=== PATIENT | male | born 1995 | race Caucasian/White ===

== ENCOUNTER 2018-12-13 19:09 | Inpatient (IN) | payer BC ==
[~2018-12-13 19:09] MED LIST: Iopamidol 300 61% 100 ML VIAL FS ONE
[2018-12-13 20:23] LABS: ALT (SGPT) 60 U/L (8-55); AST (SGOT) 31 U/L (5-34); Albumin 4.3 g/dL (3.5-5.0); Alkaline Phosphatase 79 U/L (40-150); Anion Gap 14 mmol/L (10-20); BUN (Urea Nitrogen) 15 mg/dL (8.9-20.6); Bilirubin, Total 0.2 mg/dL (0.2-1.2); Calc. Creatinine Clearance 0 mL/min (70-130); Calcium 9.8 mg/dL (7.8-10.44); Carbon Dioxide 26 mmol/L (22-29); Cardiac Risk 5.2 (Less than 4.5); Chloride 104 mmol/L (98-107); Cholesterol 183 mg/dl (< 200 Desired); Estimated GFR-MDRD Greater than 90; Glucose 134 mg/dL (70-105); HDL Cholesterol 35 mg/dL (>60 Neg Risk); LDL Cholesterol, Calculated 111 mg/dL; Lipase 206 U/L (8-78); Potassium 3.7 mmol/L (3.5-5.1); Protein, Total 7.3 g/dL (6.0-8.3); Sodium 140 mmol/L (136-145); Triglycerides 185 mg/dL (Less than 150)
--- NOTE | 2018-12-13 20:58 | ULT ---
Right upper quadrant ultrasound: 12/13/2018 COMPARISON: None HISTORY: Diffuse abdominal pain, elevated lipase TECHNIQUE: Multiplanar grayscale sonographic imaging of the right upper quadrant obtained. FINDINGS: The pancreas is difficult to visualize secondary to bowel gas. Mildly prominent partially v isualized pancreatic duct noted. No focal liver lesion or intrahepatic biliary dilatation. The right kidney measures 11.1 cm in craniocaudal dimension and demonstrates no stone, hydronephrosis , or mass. No gallbladder wall thickening. No pericholecystic fluid or gallstones. The manager of selection and assessment reports a neg ative Rodney's sign. The common bile duct measures 2 mm, within normal limits. IMPRESSION: No evidence for cholelithiasis or cholecystitis.
[2018-12-13] MEDS ORDERED: Ondansetron PF 4 MG/2 ML Vial ONE (21:14)
[2018-12-13] MEDS ORDERED: Morphine 4 MG/ML VIAL ONE (21:14)
--- NOTE | 2018-12-13 22:03 | CT ---
CT abdomen and pelvis: 12/13/2018 COMPARISON: None HISTORY: Abdominal pain TECHNIQUE: Axial CT imaging at 5 mm intervals from lung bases through pubic symphysis with IV contras t. Coronal reformatted imaging obtained. FINDINGS: The visualized lung bases are unremarkable. No free intraperitoneal air. The liver, gallbladder, and spleen appear unremarkable. The distal pancreatic body and the pancreatic tail is ill-defined and slightly enlarged. There is inf lammatory fat stranding adjacent to the distal pancreas. The adrenal glands and the kidneys appear unremarkable. The appendix is unremarkable. There is significant abnormal free fluid within the pelvis. There is a focal area of prominent colonic wall thickening and pericolonic fat stranding in the regio n of the splenic flexure. No evidence for bowel obstruction is noted. Vascular structures of the abdomen/pelvis appear patent. No retroperitoneal lymphadenopathy is noted. Osseous structures demonstrate no worrisome lytic or blastic bone lesions. IMPRESSION: Prominent inflammatory fat stranding in the left upper quadrant adjacent to the distal pa ncreatic body/pancreatic tail and the splenic flexure. This could represent colitis with secondary inflammation of the pancreas or could represent pancreatitis with secondary inflammation of the colon . Clinical correlation is essential.
[2018-12-13] MEDS ORDERED: metroNIDAZOLE 500 MG/100 ML BAG ONE (22:19)
[2018-12-13] MEDS ORDERED: Ciprofloxacin Lactate/D5W 400 mg/200 ml Premix ONE (22:19)
[2018-12-14 00:21] VITALS: BMI 25.7
[2018-12-14] MEDS ORDERED: Ondansetron PF 4 MG/2 ML Vial IVP PRN (00:37)
[2018-12-14] MEDS ORDERED: Ondansetron ODT 4 MG TAB PO PRN (00:37)
[2018-12-14] MEDS ORDERED: Acetaminophen 325 MG TAB PO PRN (00:37)
[2018-12-14] MEDS ORDERED: Morphine 4 MG/ML VIAL SLOW IVP PRN (00:41)
[2018-12-14] MEDS: Sodium Chloride 0.9% 1,000 ML IV SCH ×3 (01:41→13:54)
--- NOTE | 2018-12-14 03:23 | HP ---
PRIMARY CARE PHYSICIAN: Rubio Aparicio MD. TIME OF EVALUATION: 11:30. CHIEF COMPLAINT: Abdominal pain. HISTORY OF PRESENT ILLNESS: This is a 23-year-old male patient, with past medical history of no significant medical problems, came to the hospital after having abdominal pain for the last 2 weeks. There is diffuse epigastric with radiation to the lower abdomen and back. The patient has no clear triggers, no alleviating factors. He did report having some hypertension, some Motrin for pain. Symptoms were moderate. REVIEW OF SYSTEMS: CONSTITUTIONAL: No fever, chills, or generalized weakness. RESPIRATORY: No cough, sputum production, shortness of breath. CARDIOVASCULAR: No chest pain or palpitation. GASTROINTESTINAL: No nausea. No vomiting. No diarrhea. The patient has abdominal pain. SYSTEMS CONSULTANT: No dizziness, headache, or feeling lightheaded. GENITOURINARY: No burning on urination. EXTREMITIES: No leg swelling. All other systems were reviewed and negative except for the findings mentioned above. PAST MEDICAL HISTORY: Negative. PAST SURGICAL HISTORY: No surgical history. PSYCHIATRIC HISTORY: Negative. SOCIAL HISTORY: The patient drinks every week. No drugs. The patient uses tobacco, smokes cigarettes on a daily basis. FAMILY HISTORY: Positive for mother with diabetes and father with heart problems. KNOWN ALLERGIES: No known drug allergies. REPORTED MEDICATIONS: None. PHYSICAL EXAMINATION: VITAL SIGNS: On presentation, blood pressure 127/94 with heart rate 83, respiratory rate was 18, temperature 98.6. Pain was 3/10. Oxygen saturation was 98% on room air. GENERAL APPEARANCE: The patient is alert, oriented, not in acute distress. HEENT: Eyes, normal conjunctivae. Moist oral mucosa. Anicteric. No JVD. RESPIRATORY: Bilateral air entry. No rales. No wheezes. Symmetric expansion. CARDIOVASCULAR: Normal rate, regular rhythm. No murmurs. No gallop. No edema. ABDOMEN: Soft. The patient has mild abdominal tenderness. MUSCULOSKELETAL: Baseline range of motion and strength. No tenderness. SKIN: Warm, intact. No pallor. No rash. No redness. Peripheral pulses are present. Capillary refill seems to be intact. NEUROLOGICAL: No evidence of any new focal weakness. Baseline speech. Cranial nerves seems to be intact. PSYCHIATRIC: The patient is in good mood. No anxiety. Optimal judgment. IMAGING STUDIES: CT abdomen was done and shows some possible inflammation of the pancreas/colon. The patient has no symptoms of colitis. LABORATORY DATA: Reviewed. The patient has sodium of 140, potassium 3.7, chloride 104, carbon dioxide 26, anion gap 14, BUN 15, creatinine 0.79, glucose 134, calcium 9.8, total bilirubin 0.2, AST 31, ALT 6, alkaline phosphatase 79. Serum total protein 7.3, albumin 4.3, globulin 3.0, albumin globulin ratio is 1.4. Triglycerides 185, cholesterol 183, LDL 111, HDL cholesterol 35. 2.5, lipase 206. ASSESSMENT AND PLAN: The patient will be placed in the hospital with following medical problems; 1. Possible pancreatitis. The patient has continuous abdominal pain for the past 2 weeks and had lipase in the range of 200. Also some CT findings suspicious for acute pancreatitis. The patient will receive IV fluids. We will treat with pain management, monitor. 2. Deep venous thrombosis prophylaxis. The patient should ambulate. Job ID: [id number]
[2018-12-14 07:59] LABS: #Eosinphils 0.2 thou/uL (0.0-0.7); #Monocytes 0.4 thou/uL (0.11-0.59); #Neutrophils 3.1 thou/uL (1.40-6.50); %Basophils 0.1 % (0.0-1.0); %Eosinophils 2.8 % (0.0-10.0); %Monocytes 7.7 % (0.0-10.0); %Neutrophils 54.4 % (42.0-75.0); Hemoglobin 13.2 g/dL (14.0-18.0); Mean Corpuscular HGB CONC 34.1 g/dL (32.0-36.0); Mean Corpuscular Hemoglobin 29.3 pg (27.0-31.0); Mean Corpuscular Volume 85.8 fL (78.0-98.0); Mean Platelet Volume 7.5 fL (7.4-10.4); Platelet Count 269 thou/uL (130-400); RBC Distribution Width 11.6 % (11.5-14.5); Red Blood Cell (RBC) Count 4.51 mill/uL (4.70-6.10); White Blood Cell (WBC) Count 5.6 thou/uL (4.8-10.8)
[2018-12-14 08:19] LABS: Anion Gap 10 mmol/L (10-20); BUN (Urea Nitrogen) 11 mg/dL (8.9-20.6); Calc. Creatinine Clearance 184 mL/min (70-130); Calcium 8.7 mg/dL (7.8-10.44); Carbon Dioxide 25 mmol/L (22-29); Chloride 107 mmol/L (98-107); Estimated GFR-MDRD Greater than 90; Glucose 98 mg/dL (70-105); Potassium 3.9 mmol/L (3.5-5.1); Sodium 138 mmol/L (136-145)
[2018-12-14] MEDS ORDERED: Enoxaparin Sodium 40 MG/0.4 ML SYRINGE SC SCH (09:00)
[2018-12-14 09:30] LABS: Lipase 197 U/L (8-78); Magnesium 1.7 mg/dL (1.6-2.6); Phosphorus 3.5 mg/dL (2.3-4.7)
[2018-12-14] MEDS: Famotidine/PF 20 mg/2ml Vial SLOW IVP SCH ×2 (10:15→20:21)
[2018-12-14] MEDS: Famotidine 20 MG TAB PO SCH ×2 (10:15→20:21)
[2018-12-14] MEDS: Dextrose 5 %-0.45 % NaCl 1,000 ML IV SCH (16:32)
--- NOTE | 2018-12-14 23:14 | CON ---
DATE OF CONSULTATION: 12/14/2018 INDICATION FOR CONSULTATION: Acute pancreatitis. CONSULTING PHYSICIAN: Roberto Carmona MD. HISTORY OF PRESENT ILLNESS: The patient is a 23-year-old male with no significant past medical history, presenting with complaints of midepigastric abdominal pain. He states that he was in his usual state of health until approximately 2 weeks ago when he had acute onset of midepigastric abdominal pain. This abdominal pain was characterized as a sharp/stabbing type sensation, was constant with waxing/waning severity, would radiate to his mid back in the periumbilical region and would reach a severity of approximately 7 to 8/10. The pain was worse with eating solids only and was able to tolerate liquid liquids with no difficulty, worse with not eating and with deep inspiration, The pain was better with decreased physical activity, again not eating and administration of pain medications here in the hospital. Associated symptoms included nausea without vomiting, abdominal bloating, and the sensation to have a bowel movement, but unable to do so. Upon evaluation in the [facility] ER, he had imaging that was consistent with inflammatory fat stranding adjacent to the pancreatic body and tail consistent with acute pancreatitis as well as an elevated lipase that was near the diagnostic criteria for that and ultimately admitted to the hospital for treatment for acute pancreatitis. Currently, he denies any vomiting, fevers, chills, dysphagia, odynophagia, GI bleeding, or weight loss. Of note, the patient would smoke approximately one half pack per day along with drinking anywhere between 6 beers to 1 to one half bottle of liquor on the weekends. PAST MEDICAL HISTORY: None. PAST SURGICAL HISTORY: None. FAMILY HISTORY: Denies any GI malignancies. SOCIAL HISTORY: Denies any illicit drug use, but does smoke tobacco at approximately 1/4 pack per day. He also drinks every week on the weekends where he would consume anywhere between 1 six-pack of beer to one half to 1 bottle of liquor. OUTPATIENT MEDICATIONS: None. ALLERGIES: NO KNOWN DRUG ALLERGIES. PHYSICAL EXAMINATION: VITAL SIGNS: Temperature 97.8, pulse 55, blood pressure 129/80, respiratory rate 15, saturating 98% on room air. GENERAL: The patient was lying in bed, in no acute distress. Alert and oriented x4. HEENT: Normocephalic, atraumatic. NECK: Supple with no JVD or scleral icterus noted. CARDIOVASCULAR: Regular rate and rhythm with no discernible murmurs, gallops, or rubs. RESPIRATORY: Clear to auscultation bilaterally with no discernible wheezes or rales. ABDOMEN: Normoactive bowel sounds. Soft, nondistended. Tenderness to palpation in the midepigastric, left upper quadrant and right upper quadrant. EXTREMITIES: No cyanosis, clubbing, or edema. LABORATORY DATA: CBC with a white blood cell count of 5.6, hemoglobin 13.2, hematocrit 38.7, platelets 269. Chemistry with a sodium of 138, potassium 3.9, chloride 107, CO2 of 25, BUN 11, creatinine 0.74, glucose 98. AST 31, ALT 60, alkaline phosphatase 79, total bilirubin 0.2, lipase 206, triglycerides 185. IMAGING DATA: Right upper quadrant ultrasound obtained on December 13, 2018 showed a mildly prominent pancreatic duct with no focal liver lesion or intrahepatic dilatation seen. There was also no gallbladder wall thickening or cholelithiasis with the common bile duct measuring approximately 2 [address] in diameter. A CT of the abdomen/pelvis was obtained on December 13, 2018, which showed ill-defined character of the distal pancreatic body and tail that was noted to be slightly enlarged with inflammatory fat stranding adjacent to the distal pancreas. Prominent colonic wall thickening was also noted in this region with pericolonic fat stranding around the splenic flexure. ASSESSMENT AND PLAN: The patient is a 23-year-old male with no significant past medical history, presenting with acute uncomplicated pancreatitis. Acute uncomplicated pancreatitis. The patient is presenting with acute onset of midepigastric abdominal pain approximately 2 weeks ago, characterized as a sharp/stabbing type sensation that would radiate to the mid back. With worsening of this abdominal pain it has prompted him to seek healthcare assistance at [facility] ER. While in the ER, he was noted to have a significantly elevated lipase at approximately 3 times the upper limit of normal as well as imaging consistent with acute pancreatitis with inflammatory fat stranding around the transverse colon/splenic flexure. At this time, the more likely reason for the patient's pancreatitis would be binge drinking of alcohol, consuming more than 6 drinks within a 24 hour period that would would place him at increased risk for acute pancreatitis. Tobacco use also can contribute to acute pancreatitis, but it is unclear as to its involvement at this time. RECOMMENDATIONS: 1. We would continue patient's n.p.o. status and continue monitoring as an inpatient. 2. We would continue with aggressive IV fluid resuscitation in light of acute pancreatitis. 3. Pain control per primary team. 4. We would continue to trend CBC and LFTs daily in light of acute pancreatitis. 5. We would consider placing the patient on stool softener while inpatient given the amount of inflammation around the colon secondary to pancreatitis. 6. We will continue to follow. 7. Please call with any questions. Job ID: [id number]
[2018-12-15] MEDS: Dextrose 5 %-0.45 % NaCl 1,000 ML IV SCH ×4 (00:02→20:06)
[2018-12-15] MEDS: Famotidine 20 MG TAB PO SCH ×2 (07:34→20:05)
[2018-12-15] MEDS: Famotidine/PF 20 mg/2ml Vial SLOW IVP SCH ×2 (07:36→19:09)
[2018-12-15 07:47] LABS: #Eosinphils 0.2 thou/uL (0.0-0.7); #Lymphocytes 1.5 thou/uL (1.20-3.40); #Monocytes 0.3 thou/uL (0.11-0.59); #Neutrophils 2.8 thou/uL (1.40-6.50); %Basophils 0.8 % (0.0-1.0); %Eosinophils 3.7 % (0.0-10.0); %Lymphocytes 31.5 % (21.0-51.0); %Monocytes 6.4 % (0.0-10.0); %Neutrophils 57.5 % (42.0-75.0); Hemoglobin 13.9 g/dL (14.0-18.0); Mean Corpuscular HGB CONC 31.9 g/dL (32.0-36.0); Mean Corpuscular Hemoglobin 27.5 pg (27.0-31.0); Mean Corpuscular Volume 86.2 fL (78.0-98.0); Mean Platelet Volume 7.4 fL (7.4-10.4); Platelet Count 276 thou/uL (130-400); RBC Distribution Width 11.7 % (11.5-14.5); Red Blood Cell (RBC) Count 5.07 mill/uL (4.70-6.10); White Blood Cell (WBC) Count 4.8 thou/uL (4.8-10.8)
[2018-12-15 08:10] LABS: ALT (SGPT) 34 U/L (8-55); AST (SGOT) 23 U/L (5-34); Alkaline Phosphatase 74 U/L (40-150); Anion Gap 12 mmol/L (10-20); BUN (Urea Nitrogen) 7 mg/dL (8.9-20.6); Bilirubin, Total 0.4 mg/dL (0.2-1.2); Calc. Creatinine Clearance 182 mL/min (70-130); Calcium 9.4 mg/dL (7.8-10.44); Carbon Dioxide 24 mmol/L (22-29); Chloride 106 mmol/L (98-107); Estimated GFR-MDRD Greater than 90; Globulin 2.7 g/dL (2.4-3.5); Glucose 122 mg/dL (70-105); Lipase 212 U/L (8-78); Phosphorus 3.5 mg/dL (2.3-4.7); Potassium 3.8 mmol/L (3.5-5.1); Protein, Total 6.7 g/dL (6.0-8.3); Sodium 138 mmol/L (136-145)
--- NOTE | 2018-12-15 19:23 | PRG ---
DATE OF SERVICE: 12/15/2018 INDICATION FOR CONSULTATION: Acute pancreatitis. SUBJECTIVE: The patient states that he is doing much better today with minimal pain in the left upper quadrant. He was able to tolerate a clear liquid diet with no acute exacerbation of his pain. Currently, denies any nausea, vomiting, fevers, chills, GI bleeding, diarrhea, or constipation. OBJECTIVE: VITAL SIGNS: Temperature 97.5, pulse 50, blood pressure 112/63, respiratory rate 16, saturating 96% on room air. GENERAL: The patient is lying in bed, in no acute distress. Alert and oriented x4. CARDIOVASCULAR: Regular rate and rhythm. RESPIRATORY: Clear to auscultation bilaterally. ABDOMEN: Normoactive bowel sounds. Soft, nondistended, mild tenderness to palpation in the left upper quadrant. EXTREMITIES: No cyanosis, clubbing, or edema. LABORATORY DATA: CBC with a white blood cell count of 4.8, hemoglobin 13.9, hematocrit 43.7, platelets 276. Chemistry with a sodium of 138, potassium 3.8, chloride 106, CO2 24, BUN 7, creatinine 0.75, glucose 122. AST 23, ALT 34, alkaline phosphatase 74, and total bilirubin 0.4. IMAGING DATA: No current GI imaging is available for review. ASSESSMENT AND PLAN: The patient is a 23-year-old male with no significant past medical history, presenting with acute uncomplicated pancreatitis. Acute uncomplicated pancreatitis. The patient initially presented with acute onset of midepigastric abdominal pain that started approximately 2 weeks prior to admission that progressively worsened over this time period, prompting him to seek healthcare assistance at [facility] ER. While in the ER, he was noted to have CT findings consistent with acute pancreatitis as well as significantly elevated lipase confirming the diagnosis. Currently, he is responding well to IV fluid administration and has been able to tolerate a clear liquid diet without any further worsening of his abdominal pain. At this time, the more likely reason for the patient's pancreatitis would be binge drinking of alcohol prior to admission and as such, I would recommend cessation starting now. RECOMMENDATIONS: 1. Would advance the patient's diet to full liquid diet and if tolerates this tonight, can advance to a low-fat diet tomorrow morning. 2. Would start to back off on IV fluid resuscitation in light of improving oral intake. 3. Pain control per Primary Team. 4. Continue to monitor clinically for improvement in his abdominal pain. Trending of lipase does not portend a worsening or improving prognosis. If the patient is able to tolerate a low-fat diet tomorrow morning without difficulty, he could be potentially discharged to home with followup with either PCP or in the GI Clinic. We will sign off at this time. Please call with any questions. Job ID: [id number]
--- NOTE | 2018-12-15 22:04 | PDOC.PN ---
- Subjective Encounter Start Date: 12/15/18 Encounter Start Time: 11:30 Patient seen and examined for Acute Pancreatitis. Abd pain improving. No N/V. No new complaints. No overnight events - Objective Resuscitation Status - Order Detail: 12/14/18 00:37 Resuscitation Status Routine Resuscitation Status: FULL: Full Resuscitation MAR Reviewed: Yes Vital Signs & Weight: Vital Signs (12 hours) Temp Pulse Resp BP Pulse Ox 12/15/18 20:00 99 12/15/18 19:47 97.8 F 62 15 135/82 99 Weight Weight 185 lb I&O: 12/14/18 12/15/18 12/16/18 06:59 06:59 06:59 Intake Total 420 Balance 420 Result Diagrams: 12/15/18 07:33 12/15/18 07:33 Phys Exam - Physical Examination Constitutional: NAD Respiratory: no wheezing, no rhonchi Cardiovascular: RRR, no rub Gastrointestinal: soft, positive bowel sounds minimal epid tenderness, no rebound/guarding Musculoskeletal: no edema Neurological: non-focal Dx/Plan - Plan DVT proph w/SCDs IMPRESSION: Acute Pancreatitis - ?alcohol induced Alcohol use Abn LFTs Dehydration Abd pain due to #1 dyslipidemia PLAN: Start Clear liqd diet Cont IVF - reduce rate to 75 Cont H2 blockers AM labs Review of Systems - Medications/Allergies Allergies/Adverse Reactions: Allergies Allergy/AdvReac Type Severity Reaction Status Date / Time No Known Allergies Allergy Unverified 12/13/18 23:18 Medications: Current Medications Acetaminophen (Tylenol) 650 mg PO Q4H PRN PRN Reason: Headache/Fever/Mild Pain (1-3) Famotidine (Pepcid) 20 mg SLOW IVP Q12HR REPLACED BY [facility] Last Admin: 12/15/18 19:09 Dose: Not Given Famotidine (Pepcid) 20 mg PO BID REPLACED BY [facility] Last Admin: 12/15/18 20:05 Dose: 20 mg Dextrose/Sodium Chloride (D5 1/2 Ns) 1,000 mls @ 150 mls/hr IV .Q6H40M REPLACED BY [facility] Last Admin: 12/15/18 20:06 Dose: 1,000 mls Morphine Sulfate (Morphine) 2 mg SLOW IVP Q4H PRN PRN Reason: Severe Pain (7-10) Ondansetron HCl (Zofran Odt) 4 mg PO Q6H PRN PRN Reason: Nausea/Vomiting Ondansetron HCl (Zofran) 4 mg IVP Q6H PRN PRN Reason: Nausea/Vomiting
[2018-12-16] MEDS: Dextrose 5 %-0.45 % NaCl 1,000 ML IV SCH ×2 (05:02→08:28)
[2018-12-16 07:17] LABS: Lipase 170 U/L (8-78); Magnesium 2.1 mg/dL (1.6-2.6); Phosphorus 3.7 mg/dL (2.3-4.7)
[2018-12-16] MEDS: Famotidine 20 MG TAB PO SCH (08:28)
[2018-12-16] MEDS: Famotidine/PF 20 mg/2ml Vial SLOW IVP SCH (08:29)
[2018-12-16] MEDS ORDERED: Dextrose 5 %-0.45 % NaCl 1,000 ML IV SCH (08:43)
[2018-12-16 11:26] VITALS: TEMP 98.1
--- NOTE | 2018-12-16 11:42 | DIS ---
DATE OF ADMISSION: 12/13/2018 DATE OF DISCHARGE: 12/16/2018 DISCHARGE DISPOSITION: Home. FOLLOWUP: With primary care physician, Dr. Rubio Aparicio in 1 week. The patient was seen and examined on the day of discharge. Denies any new complaints. Abdominal pain is improving. He is tolerating low-fat diet. BRIEF HOSPITAL COURSE: The patient is a 23-year-old man, who presented to the hospital on December 13, 2018, with abdominal discomfort along with nausea and vomiting. His workup was consistent with acute pancreatitis, probably secondary to alcohol use. His lipase on admission was 206. At discharge, his lipase is 170. He was kept n.p.o. for 24 hours. He has been tolerating a low-fat diet. He appears stable for discharge. DISCHARGE MEDICATIONS: None. FINAL DIAGNOSES: 1. Acute pancreatitis, probably secondary to alcohol use. 2. Abnormal LFTs secondary to alcohol use. His ALT on admission was 60, that improved to 34. Other LFTs were normal. 3. Dyslipidemia. Triglyceride was 185 with cholesterol 183, LDL 111, HDL 35. 4. Abdominal discomfort, nausea, and vomiting secondary to #1. 5. Dehydration. 6. Mild chronic anemia, normochromic, normocytic. The patient was counseled extensively to quit drinking. Plan of care was discussed with the patient. He stated understanding. Job ID: [id number]
[2018-12-16 12:21] VITALS: BP 115/66
== END 2018-12-16 13:04 | disposition home or self-care (01) | DRG 439 ==
LOC: SCSER 19:09 → T4-A 22:10
PROVIDERS: ADMIT Hospitalist; ATTEND Hospitalist
DX: K85.20 Alcohol induced acute pancreatitis without necrosis or infection (principal); F10.288 Alcohol dependence with other alcohol-induced disorder; F17.210 Nicotine dependence, cigarettes, uncomplicated; E86.0 Dehydration; E78.5 Hyperlipidemia, unspecified; R74.8 Abnormal levels of other serum enzymes; D64.9 Anemia, unspecified; Z71.6 Tobacco abuse counseling
CPT/HCPCS: 36415; 74177; 76705; 80048; 80053; 80061; 82150; 83690; 83735; 84100; 85025; 96361; 96365; 96375; J0744; J1650; J2270; J2405; Q9967; S0028

== ENCOUNTER 2019-02-15 06:45 | Outpatient (CLI) | payer BC ==
--- NOTE | 2019-02-15 08:46 | ULT ---
ABDOMINAL ULTRASOUND: HISTORY: Elevated LFTs. History of pancreatitis in December. FINDINGS: Real-time imaging in the upper abdomen demonstrates a normal-appearing gallbladder. The common duct is 3 mm. The liver measures 18.6 cm in length. The spleen measures 10.5 cm. No focal abnormalities . The technologist reports a negative ultrasound Rodney's sign. Right and left kidneys are normal in size and not obstructed. The pancreas, abdominal aorta, and IVC regions appear fairly unremarkable. IMPRESSION: Unremarkable abdomen ultrasound. POS: OFF
== END 2019-02-15 06:46 | disposition home or self-care (01) ==
LOC: BICULT 06:45
PROVIDERS: ATTEND Family Medicine
DX: R74.8 Abnormal levels of other serum enzymes (principal)
CPT/HCPCS: 76700

== ENCOUNTER 2022-05-06 15:23 | Outpatient (CLI) | payer BC | END 2022-05-06 15:24 | disposition home or self-care (01) | LOC: CTENTCT 15:23 | PROVIDERS: ATTEND Otolaryngology Plastic Surgery within the Head & Neck | DX: J34.2 Deviated nasal septum (principal) | CPT/HCPCS: 70486 ==